=== PATIENT | male | born 1960 | race Two or more races ===

== ENCOUNTER 2018-07-08 06:43 | Day surgery (SDC) | payer OTHER ==
[2018-07-08] VITALS (13 sets, daily range): BP systolic 101–124; BP diastolic 57–80
[~2018-07-08] VITALS: Ht 182.9 cm; Wt 80.7 kg
[~2018-07-08 06:43] MED LIST: ceFAZolin 1gm IVPB IVPB ONE; celeBREX 200mg Cap **SURGERY PATIENTS ONLY ORAL ONE; oxyCONTIN 20mg tab ORAL ONE
[2018-07-08] MEDS ORDERED: GENVOYA TABLET1 EACH PO (07:23)
[2018-07-08] MEDS ORDERED: VITAMIN D400 INTLU ORAL (07:23)
[2018-07-08] MEDS ORDERED: CETIRIZINE HCL10 M1 PO (07:23)
[2018-07-08] MEDS ORDERED: NAPROXEN500 M2 ORAL (07:23)
[2018-07-08] MEDS ORDERED: CARDURA4 MG ORAL (07:23)
[2018-07-08] MEDS ORDERED: PROSCAR5 MG ORAL (07:23)
[2018-07-08] MEDS ORDERED: LIPITOR20 MG ORAL (07:23)
[2018-07-08] MEDS ORDERED: Bupivacaine 0.5% Inj 30 ml vial INJ ONE (08:25)
[2018-07-08] MEDS ORDERED: fentaNYL 100 mcg/2 mL IV ONE (08:42)
[2018-07-08] MEDS ORDERED: Midazolam 2mg/2ml Inj ONE (08:42)
[2018-07-08] MEDS ORDERED: Ropivacaine 5mg/ml Vial 30ml INJ ONE ×2 (08:44→09:50)
[2018-07-08] MEDS ORDERED: Bacitracin 50000 Units Vial ONE (08:44)
[2018-07-08] MEDS ORDERED: NeoSporin Gu Irrig 1ml Amp IRRIG ONE (08:44)
[2018-07-08] MEDS ORDERED: NS Irrig 1000ml ONE (09:00)
[2018-07-08] MEDS ORDERED: Sterile Water Irrig 1000ml IRRIG ONE (09:00)
[2018-07-08] MEDS ORDERED: LR 1000ml ONE (09:00)
--- NOTE | 2018-07-08 09:13 | Operative Note - PDOC ---
Operative Note Operative Note Pre-op Diagnosis: right shoulder ac dislocation Procedure: see op report Post-op Diagnosis: same as pre-op plus Operative Findings: consistent w/pre-op dx studies Anesthesia: regional Specimen: none Condition: stable Estimated Blood Loss: none Implant(s) used?: Yes Aric Tom MD Jul 08, 2018 09:13
--- NOTE | 2018-07-08 09:13 | Pre-Procedure Note/Attestation ---
Pre-Procedure Note/Attestation Complete Prior to Procedure Planned Procedure: right Procedure Narrative: shoulder AC joint reconstruction Indications for Procedure Pre-Operative Diagnosis: right shoulder ac dislocation Attestation I attest that I discussed the nature of the procedure; its benefits; risks and complications; and alternatives (and the risks and benefits of such alternatives ), prior to the procedure, with the patient (or the patient's legal sales representative education courses). I attest that, if there was a reasonable possibility of needing a blood transfusion, the patient (or the patient's legal sales representative education courses) was given the [facility] standardized written summary, pursuant to the [place] [place] Blood Safety Act ([place] Health and Safety Code # 1645, as amended). I attest that I re-evaluated the patient just prior to the surgery and that there has been no change in the patient's H&P, except as documented below: Aric Tom MD Jul 08, 2018 09:13
[2018-07-08] MEDS ORDERED: ePHEDrine 50mg/ml Inj ONE (09:50)
[2018-07-08] MEDS ORDERED: Glycopyrrolate 0.2mg/ml 1ml Vial ONE (09:50)
[2018-07-08] MEDS ORDERED: Propofol 200mg/20ml IV ONE (09:50)
[2018-07-08] MEDS ORDERED: Neostigmine 1mg/ml 10ml Inj ONE ×2 (09:50→10:48)
[2018-07-08] MEDS ORDERED: Lidocaine 1% MPF 10mg/ml 5ml ONE (09:50)
[2018-07-08] MEDS ORDERED: fentaNYL 100 mcg/2 mL IV PRN (10:00)
--- NOTE | 2018-07-08 10:04 | Anethesia Preoperative Eval ---
Anesthesia Pre-op PMH/ROS General Date of Evaluation: Jul 08, 2018 Time of Evaluation: 08:40 Anesthesiologist: edie ASA Score: ASA 3 Mallampati Score Class I : Soft palate, uvula, fauces, pillars visible Class II: Soft palate, uvula, fauces visible Class III: Soft palate, base of uvula visible Class IV: Only hard plate visible Mallampati Classification: Class III Surgeon: renay Diagnosis: tear Surgical Procedure: open acromioclavicular reconstruction Anesthesia History: none Family History: no anesthesia problems Allergies: Coded Allergies: No Known Allergies (Unverified , 07/08/18) Medications: see eMAR Patient NPO?: Yes NPO Date: Jul 08, 2018 NPO Time: 00:01 Past Medical History Cardiovascular: Reports: HTN Pulmonary: Denies: asthma, COPD, KELLY, other Gastrointestinal/Genitourinary: Denies: GERD, CRI, ESRD, other Neurologic/Psychiatric: Denies: dementia, CVA, depression/anxiety, TIA, other Endocrine: Denies: DM, hypothyroidism, steroids, other HEENT: Denies: cataract (L), cataract (R), glaucoma, OHKAY OWINGEH (L), OHKAY OWINGEH (R), other Hematology/Immune: Reports: other - HIV; Hep C; Denies: anemia, DVT, bleeding disorder Musculoskeletal/Integumentary: Denies: OA, RA, DJD, DDD, edema, other Anesthesia Pre-op Phys. Exam Physician Exam Last Vital Signs Date Time Temp Pulse Resp B/P (MAP) Pulse Ox O2 Delivery O2 Flow Rate FiO2 07/08/18 07:31 Room Air 07/08/18 07:24 98.4 63 18 112/75 99 Constitutional: NAD Neurologic: CN 2-12 intact Cardiovascular: RRR Respiratory: CTA Gastrointestinal: S/NT/ND Airway Exam Mallampati Classification 3 Mallampati Score: Class III MO: full Neck: normal TMD: 2fb ROM: full Dentures: no upper, no lower Anesthesia Pre-op A/P Labs wnl Studies Pre-op Studies: EKG - sr Risk Assessment & Plan Plan: general peripheral block Status Change Before Surgery: Yes Pre-Antibiotics Drug: ancef Given Within 1 Hr of Incision: Yes Time Given: 09:00 Kathleen Richards CRNA Jul 08, 2018 10:04
[2018-07-08] MEDS ORDERED: Hydrogen Peroxide 473ml Bottle TOPIC ONE (10:59)
[2018-07-08] MEDS ORDERED: Zemuron 50mg/5ml Inj IV ONE (11:52)
--- NOTE | 2018-07-08 15:01 | Immediate Post-Op Evaluation ---
Immediate Post-Op Evalulation Immediate Post-Op Evalulation Procedure: acromoclavicular reconstruction Date of Evaluation: Jul 08, 2018 Time of Evaluation: 11:18 IV Fluids: 500 Blood Pressure Systolic: 124 Blood Pressure Diastolic: 80 Pulse Rate: 62 Respiratory Rate: 14 O2 Sat by Pulse Oximetry: 99 Temperature (Fahrenheit): 97.5 Nausea: No Vomiting: No Complications none Patient Status: awake, reacts, patent Hydration Status: adequate Drug: ancef Given Within 1 Hr of Incision: Yes Time Given: 09:00 Kathleen Richards CRNA Jul 08, 2018 15:01
--- NOTE | 2018-07-08 17:41 | 48 Hour Post Anesthesia Eval ---
Post Anesthesia Evaluation Procedure: acromoclavicular reconstruction Date of Evaluation: Jul 08, 2018 Time of Evaluation: 17:41 Blood Pressure Systolic: 102 0: 63 Pulse Rate: 70 Respiratory Rate: 14 O2 Sat by Pulse Oximetry: 98 Airway: patent Nausea: No Vomiting: No Hydration Status: adequate Mental Status/LOC: patient returned to baseline Follow-up Care/Observations: na Post-Anesthesia Complications: none Follow-up care needed: N/A Kathleen Richards CRNA Jul 08, 2018 17:41
[2018-07-08] MEDS ORDERED: D5 1/2NS 1,000 ML IV SCH (18:01)
[2018-07-08] MEDS ORDERED: HYDROcodone/Acetamin 5/325 tab ORAL PRN (18:01)
[2018-07-08] MEDS ORDERED: Tylenol #3 tab (300mg/30mg) ORAL PRN (18:01)
[2018-07-08] MEDS ORDERED: HYDROmorphone 1mg/ml Carpuject SUBQ PRN (18:01)
--- NOTE | 2018-07-08 18:45 | Operative Note - Dictated ---
DATE OF OPERATION: 07/08/2018 POSTOPERATIVE DIAGNOSIS: Right grade 3 to grade 5 AC joint separation. POSTOPERATIVE DIAGNOSIS: Right grade 3 to grade 5 AC joint separation. PROCEDURES: 1. Right open coracoclavicular ligament reconstruction, tibialis anterior allograft. 2. Open AC joint distal clavicle resection. 3. Release subacromial decompression bursectomy. SURGEON: Aric Tom M.D. ANESTHESIA: Interscalene with general. INDICATION FOR PROCEDURE: The patient is a pleasant gentleman, who has had progressive right shoulder pain. He had gross instability of the right shoulder indicative of operative fixation. Risks, limitations, expectations, and complications of procedure were discussed in detail. All questions addressed. DESCRIPTION OF PROCEDURE: After informed consent was obtained, the patient was brought to the operating room. The patient was placed under interscalene general anesthesia. Right shoulder was prepped and draped in a sterile manner. Time-out was performed. Ancef was administered. Incision along the mid aspect of the clavicle to the coracoid process was identified. Skin was incised. Subcutaneous fascia was created. A longitudinal split along the midportion of the clavicle was performed. Distal clavicle was visualized. A 5 mm was resected off the distal clavicle. Once that was done, the coracoid process was identified. Care was taken to dissect around the medial and lateral aspect of the coracoid process. The FiberTape along with the tibialis anterior allograft was then passed. The FiberTape was then passed through clavicle and was secured once reduction of the AC joint was performed. Once that was done, the ligament was then tied upon itself and imbricated. Once that was performed, the instruments were removed. Portal sites were closed using 3-0 Monocryl suture. Steri-Strips and a sterile dressing were applied. The patient was awoken and taken to recovery room with stable vital signs. ESTIMATED BLOOD LOSS: 50 mL. COMPLICATIONS: None. SPECIMENS: None. IMPLANTS: 1. Include a tibialis anterior allograft. 2. Arthrex FiberTape with Aric Tom M.D. DR: Estrella JOB#: [id number] CC: INOCENTE
== END 2018-07-08 13:45 | disposition home or self-care (01) ==
LOC: SUR 06:43
DX: S43.101A Unspecified dislocation of right acromioclavicular joint, initial encounter (principal); I10 Essential (primary) hypertension; B20 Human immunodeficiency virus [HIV] disease; E78.00 Pure hypercholesterolemia, unspecified; V03.90XA Pedestrian on foot injured in collision with car, pick-up truck or van, unspecified whether traffic or nontraffic accident, initial encounter; Z79.899 Other long term (current) drug therapy; Y92.410 Unspecified street and highway as the place of occurrence of the external cause; Z86.19 Personal history of other infectious and parasitic diseases; Z82.49 Family history of ischemic heart disease and other diseases of the circulatory system
CPT/HCPCS: 23550; 23929; J0690; J2250; J2405; J2704; J2710; J2795; J3010; J3490; 94003; 94150